=== PATIENT | female | born 1990 | race Caucasian/White ===

== ENCOUNTER 2017-03-16 23:17 | Emergency (ER) | payer MEDICAID ==
[~2017-03-16] VITALS: Ht 165.1 cm; Wt 56.8 kg
[~2017-03-16 23:17] MED LIST: NORCO 325 MG-51 TAB PO; PHENERGAN 25 TA25 MG PO
[2017-03-16 23:20] VITALS: TEMP 98.1
[2017-03-16] MEDS ORDERED: NAPRELAN750 MG PO (23:24)
[2017-03-17 00:08] LABS: BASO # 0.1 (0.0-0.2); BASO % 0.4 % (0.0-2.0); EOS % 0.1 % (0-4.0); GRAN # 9.6 (1.4-6.5); GRAN % 83.6 % (42.2-75.2); HEMOGLOBIN 13.7 g/dl (12.5-16.0); LYMPH # 1.1 (1.2-3.4); LYMPH % 9.9 % (20.0-51.0); MEAN CELL VOLUME 88 fl (80.0-100.0); MEAN CORPUSCULAR HEMOGLOBIN 29 pg (27.0-31.0); MEAN CORPUSCULAR HGB CONC 33 g/dl (33.0-37.0); MEAN PLATELET VOLUME 9.9 fl (7.4-10.4); MONO # 0.7 (0.1-0.6); MONO % 5.7 % (1.7-9.3); PLATELET COUNT 387 K/mm3 (130-400); RED BLOOD COUNT 4.66 M/mm3 (4.10-5.30); REDCELL DISTRIBUTION WIDTH-CV 12.6 % (11.5-14.5); WHITE BLOOD COUNT 11.5 K/mm3 (4.8-10.8)
[2017-03-17 00:17] LABS: ADJUSTED CALCIUM 9.2 mg/dL (8.4-10.2); ALANINE AMINOTRANSFERASE 15 U/L (9-52); ALBUMIN 5.2 gm/dL (3.5-5.0); ALKALINE PHOSPHATASE 42 U/L (50-136); ANION GAP 21 mmol/L (7-16); BILIRUBIN,TOTAL 1.1 mg/dL (0.0-1.0); BLOOD UREA NITROGEN 8 mg/dL (7-17); C-REACTIVE PROTEIN < 0.5 mg/dL (0.0-0.9); CALCIUM 10.2 mg/dL (8.4-10.2); CARBON DIOXIDE 19 mmol/L (22-30); CHLORIDE 105 mmol/L (98-107); GLUCOSE 118 mg/dL (74-106); LIPASE 43 U/L (23-300); POTASSIUM 3.8 mmol/L (3.4-5.0); SODIUM 145 mmol/L (137-145); TOTAL PROTEIN 8.7 gm/dL (6.4-8.2)
[2017-03-17 02:18] LABS: PH 7 (5-8); URINE APPEARANCE Clear; URINE BACTERIA Rare /hpf; URINE BILIRUBIN Negative (NEGATIVE); URINE BLOOD Negative (NEGATIVE); URINE COLOR Yellow; URINE GLUCOSE Negative (NEGATIVE); URINE KETONE 2+ (NEGATIVE); URINE RBC 0-2 /hpf; URINE UROBILINOGEN Negative (NEGATIVE); URINE WBC 0-2 /hpf
[2017-03-17] MEDS ORDERED: BENTYL 20MG20 MG/TAB PO (04:08)
[2017-03-17 04:19] VITALS: BP 105/74; PULSE 93
== END 2017-03-17 04:26 | disposition home or self-care (01) ==
LOC: COL.ER 23:17
PROVIDERS: Nurse Practitioner
DX: R10.84 Generalized abdominal pain (principal); R11.10 Vomiting, unspecified; R63.0 Anorexia; F41.9 Anxiety disorder, unspecified; Z87.19 Personal history of other diseases of the digestive system
CPT/HCPCS: J1170; J2550; J3360; J7030; Q9967